=== PATIENT | female | born 1980 | race Caucasian/White ===

== ENCOUNTER 2017-02-18 10:04 | Emergency (ER) | payer OTHER ==
[~2017-02-18] VITALS: Ht 144.7 cm; Wt 45.4 kg
[~2017-02-18 10:04] MED LIST: ALBUTEROL0.09 MG/A2 IH; FLEXERIL5 MG PO; MEDROL DOSEPAK4 MG PO; MOTRIN800 MG PO; NKHM; TRAMADOL HCL50 MG PO; ZITHROMAX Z PA250 MG PO
[2017-02-18 10:12] VITALS: BP 126/65
[2017-02-18] MEDS ORDERED: NAPROSYN500 MG PO (10:15)
== END 2017-02-18 12:04 | disposition home or self-care (01) ==
LOC: ED 10:04
DX: S93.401A Sprain of unspecified ligament of right ankle, initial encounter (principal); R03.0 Elevated blood-pressure reading, without diagnosis of hypertension; F17.200 Nicotine dependence, unspecified, uncomplicated; Z98.890 Other specified postprocedural states; Z98.51 Tubal ligation status; X58.XXXA Exposure to other specified factors, initial encounter; Y93.39 Activity, other involving climbing, rappelling and jumping off; Y92.89 Other specified places as the place of occurrence of the external cause; Y99.9 Unspecified external cause status

== ENCOUNTER → 2017-08-18 | Outpatient (CLI) | payer OTHER ==
[~2017-08-18] MED LIST changes: +NAPROSYN500 MG PO
[2017-08-18 15:07] LABS: HEMATOCRIT 42.6 % (37.0-47.0); HEMOGLOBIN 14.5 g/dl (12.0-16.0); MEAN CELL VOLUME 98.6 fl (81.0-99.0); MEAN CORPUSCULAR HGB 33.6 pg (27.0-31.0); RED BLOOD COUNT 4.32 10*6/uL (4.10-5.10); RED CELL DISTRI WIDTH 12.8 % (0-14.5); WHITE BLOOD COUNT 8.4 10*3/uL (4.8-10.8)
[2017-08-18 15:36] LABS: ALBUMIN 3.6 gm/dl (3.1-4.5); ALKALINE PHOSPHATASE 54 U/L (45-117); BUN 13 mg/dl (7-24); CHLORIDE 107 mmol/L (98-107); CHOLESTEROL 192 mg/dL (<200); CREATININE 0.82 mg/dL (0.55-1.02); POTASSIUM 3.8 mmol/L (3.5-5.1); SGOT/AST 14 IU/L (3-35); SGPT/ALT 14 U/L (12-78); SODIUM 140 mmol/L (136-145); TOTAL PROTEIN 6.7 gm/dL (6.4-8.2); TRIGLYCERIDES 85 mg/dl (<150); VLDL CHOLESTEROL 17 mg/dL (6-40)
[2017-08-18 15:44] LABS: HDL CHOLESTEROL 60 mg/dl (40-60); LDL CHOLESTEROL 115 mg/dL (9-159)
[2017-08-19 05:13] LABS: THYROID PEROXIDASE (TPO) AB 18 IU/mL (0-34)
[2017-08-19 07:07] LABS: HEPATITIS B SURFACE AG Negative (Negative); HEPATITIS C VIRUS ANTIBODY 0.2 s/co (0.0-0.9)
[2017-08-19 08:09] LABS: HIV 1+2 AB + HIV1 P24 AG Non Reactive (Non Reactive)
[2017-08-21 14:07] LABS: THYROGLOBULIN ANTIBODY <1.0 IU/mL (0.0-0.9)
== END ==
LOC: LAB 14:27
PROVIDERS: Family Medicine
DX: R07.89 Other chest pain (principal); R00.2 Palpitations; R42 Dizziness and giddiness; F17.200 Nicotine dependence, unspecified, uncomplicated; E78.00 Pure hypercholesterolemia, unspecified; F19.10 Other psychoactive substance abuse, uncomplicated; R53.83 Other fatigue

== ENCOUNTER 2024-01-19 18:40 | Emergency (ER) | payer SELFPAY ==
[~2024-01-19] VITALS: Ht 175.2 cm; Wt 45.4 kg
[2024-01-19 18:50] VITALS: BP 106/65
[2024-01-19] MEDS ORDERED: PENICILLIN-VK500 MG PO (18:59)
[2024-01-19] MEDS ORDERED: HYDROCODONE-AC1 EACH PO (18:59)
[2024-01-19] MEDS ORDERED: PENICILLIN V POTASSIUM 500 MG TAB PO ONE ×3 (19:00→19:05)
[2024-01-19] MEDS ORDERED: Acetaminophen/Hydrocodone HP 10/325 PO ONE ×2 (19:00→19:05)
== END 2024-01-19 19:19 | disposition home or self-care (01) ==
LOC: ED 18:40
DX: K04.7 Periapical abscess without sinus (principal); J45.909 Unspecified asthma, uncomplicated; Z98.51 Tubal ligation status; Z98.890 Other specified postprocedural states